=== PATIENT | female | born 1980 | race Caucasian/White ===

== ENCOUNTER 2018-11-23 10:14 | Inpatient (IN) | payer BC ==
--- NOTE | 2018-11-18 09:29 | HP ---
Admitting History and Physical - Primary Care Physician PCP: Ryland Mello - Admission Chief Complaint: Right breast cancer History of Present Illness: 38 year old premenapausal female with family H/O breast cancer who felt a lump in her right breast for 6 mos and went for mammogram and US 10/05/2018 which showed density right breast UOQ with calcifications and spiculation. US showed 3.3 cm mass right breast 10:00 3 cm FN. US core biopsy right breast 2017 showed invasive ductal carcioma ER+/AL+/HER2-. She also underwent left breast 3:00 biopsy that eas benign. MRI showed known right breast cancer UOQ 2.7x2.6 cm with a separate satllite lesion posteriorl to main mass. There was also some slight suspisious 8:00 and left breast was negative. Directed us of 8:00 region at [place] showed area to be biopsied but was not done since she is opting for bilateral mastectomies. Myrisk panel was negative. History Source: Patient Limitations to Obtaining History: No Limitations - Past Medical History Renal/: Yes: UTI (decreased) - Past Surgical History Past Surgical History: Yes: Appendectomy (2018) Additional Past Surgical History: eye lasik 2018 - Smoking History Smoking history: Never smoked Have you smoked in the past 12 months: No - Alcohol/Substance Use Hx Alcohol Use: Yes (social) Home Medications - Allergies Allergies/Adverse Reactions: Allergies Allergy/AdvReac Type Severity Reaction Status Date / Time bee venom protein (honey bee) Allergy Verified 11/18/18 09:38 Sulfa (Sulfonamide Allergy Verified 11/18/18 09:38 Antibiotics) - Home Medications Home Medications (free text): nitrofurantoin Family Disease History - Family Disease History Family Disease History: CA: Grandparent (mat [place] breast ca 80) Other Family History: mat aunt breast ca 50 Physical Examination Constitutional: Yes: No Distress Breast(s): Yes: Other (mildly ptotic B sized cups with visible density towards right upper outer periareolar border and is palpable no palpable left breast masses or adenopathy bilaterally post biopsy changes right breast) Problem List - Problems (1) Breast cancer, right breast Code(s): C50.911 - MALIGNANT NEOPLASM OF UNSP SITE OF RIGHT FEMALE BREAST Qualifiers: Breast location: upper outer quadrant of breast Estrogen receptor status: positive Patient sex: female Qualified Code(s): C50.411 - Malignant neoplasm of upper-outer quadrant of right female breast; Z17.0 - Estrogen receptor positive status [ER+] Assessment/Plan Bilateral total NS mastectomies retroareolar biopsies, right sentenel node biopsy possible axillary node dissection ,lymphoscintogram reconstruction alloderma and implants.
[2018-11-18 12:03] VITALS: BMI 26.3
[2018-11-23] MEDS ORDERED: GENTAMICIN SO4 80 MG/2 ML VIAL ONE (12:50)
[2018-11-23] MEDS ORDERED: ceFAZolin SODIUM 1 GM VIAL ONE (12:50)
[2018-11-23] MEDS ORDERED: MIDAZOLAM HCL 2 MG/2 ML SINGLE DOSE VIAL ONE (13:35)
[2018-11-23] MEDS ORDERED: BUPIVACAINE HCL/PF 2.5 MG/ML - 30 ML VIAL IJ ONE (13:36)
[2018-11-23] MEDS ORDERED: BUPIVACAINE LIPOSOME/PF (EXPAREL) 266 MG/20 ML VIAL ONE (13:36)
[2018-11-23] MEDS ORDERED: LIDOCAINE HCL/PF 2% SDV 5ML VIAL ONE (13:40)
[2018-11-23] MEDS ORDERED: ROCURONIUM BROMIDE 50 MG/5 ML VIAL ONE ×2 (13:40→16:18)
[2018-11-23] MEDS ORDERED: ONDANSETRON 4 MG/2 ML VIAL ONE ×2 (13:40→18:15)
[2018-11-23] MEDS ORDERED: DEXAMETHASONE SOD PHOSPHATE 4 MG/1 ML VIAL ONE (13:40)
[2018-11-23] MEDS ORDERED: DEXMEDETOMIDINE HCL 200 MCG/2 ML IVPB ONE (13:54)
[2018-11-23] MEDS ORDERED: ESMOLOL HCL 100,000 MCG/10 ML VIAL ONE (14:00)
[2018-11-23] MEDS ORDERED: ePHEDrine SULFATE 50 MG/1 ML AMPULE ONE (15:28)
[2018-11-23] MEDS ORDERED: DESFLURANE GAS 240 ML BOTTLE IH ONE (16:15)
[2018-11-23] MEDS ORDERED: ONDANSETRON 4 MG/2 ML VIAL IVPUSH PRN ×2 (17:04→18:18)
[2018-11-23] MEDS ORDERED: ZOLPIDEM TARTRATE 5 MG TABLET PO PRN (17:04)
[2018-11-23] MEDS ORDERED: ACETAMINOPHEN 325 MG TABLET (FP) PO PRN (17:04)
[2018-11-23] MEDS ORDERED: DEXTROSE 5%-0.45% SALINE 1,000 ML IV SCH (17:15)
[2018-11-23] MEDS ORDERED: PROPOFOL 20 ML ONE (17:30)
[2018-11-23] MEDS ORDERED: KETOROLAC TROMETHAMINE 30 MG/1 ML VIAL ONE (17:35)
[2018-11-23] MEDS ORDERED: NEOSTIGMINE METHYLSULFATE 0.5 MG/ML - 10 ML MDV ONE (17:37)
[2018-11-23] MEDS ORDERED: HYDROmorphone HCL CARPU-JECT 1 MG/1 ML DISP.SYRIN IVPUSH PRN (18:18)
[2018-11-23] MEDS ORDERED: ONDANSETRON 4 MG/2 ML VIAL IVPUSH ONE (18:18)
[2018-11-23] MEDS ORDERED: PROMETHAZINE HCL 25 MG/1 ML VIAL IVPUSH PRN (18:18)
[2018-11-23] MEDS: diazePAM 2 MG TABLET PO SCH ×2 (19:49→23:12)
[2018-11-23] MEDS: ACETAMINOPHEN 325 MG TABLET (FP) PO SCH (19:49)
[2018-11-23] MEDS: oxyCODONE HCL 5 MG TABLET PO PRN ×2 (19:50→23:12)
[2018-11-23] MEDS: CEFAZOLIN 1 GM/D5W 1 GM/50 ML BAG IVPB SCH (21:27)
[2018-11-23] MEDS: oxyCODONE HCL 10 MG SUSTAINED ACTING TABLET PO SCH (21:27)
[2018-11-24] MEDS: CEFAZOLIN 1 GM/D5W 1 GM/50 ML BAG IVPB SCH ×4 (02:25→20:21)
[2018-11-24] MEDS: ACETAMINOPHEN 325 MG TABLET (FP) PO SCH ×4 (02:25→20:20)
[2018-11-24] MEDS: oxyCODONE HCL 5 MG TABLET PO PRN ×6 (02:26→18:05)
[2018-11-24] MEDS: diazePAM 2 MG TABLET PO SCH ×3 (05:21→18:05)
[2018-11-24 08:04] LABS: HEMOGLOBIN 10.8 GM/dl (10.7-15.3); MCH 30.7 pg (25.7-33.7); MCHC 33.7 g/dl (32.0-36.0); MEAN CELL VOLUME 91.2 fl (80-96); PLATELET COUNT 241 K/MM3 (134-434); RBC 3.51 M/mm3 (3.60-5.2); RDW 12.1 % (11.6-15.6); WHITE BLOOD COUNT 14.1 K/mm3 (4.0-10.8)
[2018-11-24] MEDS: HEPARIN NA (PORCINE) 5,000 UNITS/ML 1ML VIAL SQ SCH ×2 (08:12→20:21)
--- NOTE | 2018-11-24 08:13 | PN ---
Progress Note (short form) - Note Progress Note: Post op day#1.S/P Bilateral mastectomy with reconstruction under GA with bilateral PECS block uneventful.Patient stable and c/o pain score of 2-3/10.NO ANY ANESTHESIA RELATED PROBLEM.pATIENT DC FROM THE anesthesia care.
--- NOTE | 2018-11-24 09:18 | OP ---
DATE OF OPERATION: 11/23/2018 PREOPERATIVE DIAGNOSES: 1. Bilateral acquired chest wall deformity status post bilateral mastectomy (611.89). 2. Personal history of carcinoma. POSTOPERATIVE DIAGNOSES: 1. Bilateral acquired chest wall deformity status post bilateral mastectomy (611.89). 2. Personal history of carcinoma. PROCEDURE: 1. Right immediate breast reconstruction utilizing immediate insertion of silicone breast implant and AlloDerm reconstruction. 2. Left immediate breast reconstruction utilizing immediate insertion of silicone breast implant and AlloDerm reconstruction. 3. Intravenous injection of indocyanine green dye and intraoperative diagnostic evaluation of non-coronary intraoperative fluorescein vascular angiography x 2. SURGEON: Dr. Stephani Cortes CUSTOMER ADVISOR: Shante Samuels PA-C ANESTHESIA: GENERAL OPERATIVE PROCEDURE IN DETAIL: The patient was taken to the operating room. After induction of general anesthesia in the supine position, both arms were extended and padded. Venodyne boots were placed. The entire chest wall was painted with ChloraPrep solution over its entire extent, and sterile drapes were placed in the usual fashion. The markings, which had been made in the standing position preoperatively, were reoutlined with the patient's knowledge. Time-out procedure was performed. Attention was turned by Dr. Mello to the mastectomies. Bilateral inframammary incisions were made and Dr. Mello performed mastectomies. This will be dictated under separate cover. Upon completion of the mastectomies, the wounds were copiously irrigated and attention was turned to the right breast. A subpectoral dissection was begun on the right breast, superiorly from the second rib, medially to the sternal fibers, and down to the inframammary fold, elevating the pectoralis major muscle from its insertion. At this point, a sheet of contour medium perforated AlloDerm was brought into the field and sutured superiorly along the pectoralis major muscle after rehydration. This was carried along the lateral mammary fold and down the side of the breast reconstruction. At this point, a contour medium perforated AlloDerm implant was chosen. The left breast tissue removed was 223 gm, and the right breast approximately 326 gm. This implant was placed and then sutured with 3-0 Vicryl suture continued along the inframammary fold, completely covering the implant itself. The exact same procedure was carried out symmetrically on the opposite breast, also placing a contour medium perforated AlloDerm implant in the same subpectoral pocket. Good symmetry was seen in the sitting position. After the MASTECTOMY AND implants were in place, the patient was injected with 10 mL of Isocyanide green dye and the Spy imaging system was brought into the field. The skin flowed to the right and left breasts and the nipple areolar complex, and the entire skin flaps were evaluated and seen to be viable with good blood flow. Two Wilder drains were brought out through separate stab wounds laterally. The Smart Infuser pump catheter was inserted medially and into the subpectoral position. Both wounds were closed symmetrically using 3-0 PDS suture on the deep tissue, 3-0 in a deep dermal fashion, and 4-0 in a subcuticular fashion. Both wounds were dressed sterilely with Mastisol and Steri-Strips with a surgical bra and a compression strap. The patient tolerated the procedure well. She was awakened, extubated and transferred to the recovery room in satisfactory condition. The retail sales assistant was present during the entire portion of the operation and closure. CHAPIN CORTES M.D. [id number] MTDD
--- NOTE | 2018-11-24 09:36 | PN ---
Progress Note, Physician Chief Complaint: S/P bilateral mastectomy with right andx and implant reconstruction POD#1 History of Present Illness: Patient was seen today and reports good pain control. She is tolerating po well and voiding regularly. - Current Medication List Current Medications: Active Medications Acetaminophen (Tylenol -) 650 mg PO Q4H PRN PRN Reason: FEVER Acetaminophen (Tylenol -) 650 mg PO Q6H [facility] Stop: 11/26/18 19:29 Last Admin: 11/24/18 08:11 Dose: 650 mg Diazepam (Valium -) 2 mg PO Q6HPO [facility] Last Admin: 11/24/18 05:21 Dose: 2 mg Heparin Sodium (Porcine) (Heparin -) 5,000 unit SQ BID@0800,2000 [facility] Last Admin: 11/24/18 08:12 Dose: 5,000 unit Cefazolin Sodium (Ancef 1 Gm Premixed Ivpb -) 1 gm in 50 mls @ 100 mls/hr IVPB Q6H-IV [facility] Stop: 11/30/18 20:59 Last Admin: 11/24/18 08:12 Dose: 100 mls/hr Dextrose/Sodium Chloride (D5-1/2ns -) 1,000 mls @ 100 mls/hr IV ASDIR [facility] Ondansetron HCl (Zofran Injection) 4 mg IVPUSH Q6H PRN PRN Reason: NAUSEA AND/OR VOMITING Last Admin: 11/23/18 22:50 Dose: 4 mg Oxycodone HCl (Roxicodone -) 5 mg PO Q3H PRN PRN Reason: PAIN LEVEL 1-5 Last Admin: 11/24/18 08:16 Dose: 5 mg Oxycodone HCl (Roxicodone -) 10 mg PO Q3H PRN PRN Reason: PAIN LEVEL 6-10 Last Admin: 11/23/18 19:50 Dose: 10 mg Oxycodone HCl (Oxycontin -) 10 mg PO BID [facility] Stop: 11/26/18 18:19 Last Admin: 11/23/18 21:27 Dose: 10 mg Zolpidem Tartrate (Ambien -) 5 mg PO HS PRN PRN Reason: Insomnia - Objective Vital Signs: Vital Signs Temperature 97.4 F L 11/24/18 06:36 Pulse Rate 59 L 11/24/18 06:36 Respiratory Rate 17 11/24/18 06:36 Blood Pressure 103/45 L 11/24/18 06:36 O2 Sat by Pulse Oximetry (%) 98 11/24/18 08:25 Constitutional: Yes: Well Nourished, Calm Breast(s): Yes: Other (Bilateral breasts with ecchymosis noted. The right nipple/areola complex slightly dusky. The incision with steristrips intact. No erythema or discharge noted. JPs x 4 with serosanginous discharge noted.) Labs: CBC, BMP 11/24/18 07:00 Problem List - Problems (1) Breast cancer, right breast Code(s): C50.911 - MALIGNANT NEOPLASM OF UNSP SITE OF RIGHT FEMALE BREAST Qualifiers: Breast location: upper outer quadrant of breast Estrogen receptor status: positive Patient sex: female Qualified Code(s): C50.411 - Malignant neoplasm of upper-outer quadrant of right female breast; Z17.0 - Estrogen receptor positive status [ER+] Assessment/Plan A: S/P bilateral mastectomy with implant reconstruction and right andx POD#1 P: OOB today with assistance IS 10 xs hourly Continue pain management and axbx as ordered Teach LAITH monitoring Plan for discharge in am
[2018-11-24] MEDS: oxyCODONE HCL 10 MG SUSTAINED ACTING TABLET PO SCH ×2 (09:40→21:39)
--- NOTE | 2018-11-24 12:15 | OP ---
Operative Note - Note: Operative Date: 11/23/18 Pre-Operative Diagnosis: Bilateral acquired chest wall deformity s/p b/l mastectomy Operation: Right immediate breast reconstruction utiliing immediate insertion of silicone breast implant and AlloDerm reconstruction. Left immediate breast reconstruction utiliing immediate insertion of silicone breast implant and AlloDerm reconstruction Findings: as dictated Implants: as dictated Post-Operative Diagnosis: Same as Pre-op Surgeon: Raymond Cortes Rn Oncology Clinical: Hilda Samuels Anesthesiologist/CHUCKING MACHINE SET UP OPERATOR TOOL: Chong Velazquez Anesthesia: General Specimens Removed: as dictated Drains & Tubes with Location: 2 LAITH drains in each breast pocket Fluid Volume Replaced (mls): 1,500 (ml) Operative Report Dictated: Yes
--- NOTE | 2018-11-24 12:16 | SURG ---
Surgery Electrotherapist Note Electrotherapist: Hilda Samuels PA-C (Suzy) Date of Service: 11/24/18 Diagnosis: Bilateral acquired chest wall deformity s/p b/l mastectomy Procedure: Right immediate breast reconstruction utiliing immediate insertion of silicone breast implant and AlloDerm reconstruction. Left immediate breast reconstruction utiliing immediate insertion of silicone breast implant and AlloDerm reconstruction I was present for the entirety of the operative procedure. For further detail, please refer to operative report. Visit type - Case Type Case Type: Scheduled - Emergency Emergency Visit: No - New patient This patient is new to me today: Yes Date on this admission: 11/24/18 - Critical Care Critical Care patient: No
[2018-11-25] MEDS: diazePAM 2 MG TABLET PO SCH ×2 (00:13→05:36)
[2018-11-25] MEDS: oxyCODONE HCL 5 MG TABLET PO PRN ×3 (00:14→10:27)
[2018-11-25] MEDS: ACETAMINOPHEN 325 MG TABLET (FP) PO SCH ×2 (01:00→06:50)
[2018-11-25] MEDS: CEFAZOLIN 1 GM/D5W 1 GM/50 ML BAG IVPB SCH ×2 (02:10→10:28)
[2018-11-25 06:22] VITALS: PULSE 60
[2018-11-25 06:23] VITALS: BP 111/59; TEMP 98.6
--- NOTE | 2018-11-25 09:14 | PN ---
Progress Note, Physician Chief Complaint: S/P bilateral mastectomy with right andx and implant reconstruction POD#2 History of Present Illness: Patient was seen at the bedside today and reports good pain control without any other complaints other then constipation. - Current Medication List Current Medications: Active Medications Acetaminophen (Tylenol -) 650 mg PO Q4H PRN PRN Reason: FEVER Last Admin: 11/25/18 05:36 Dose: 650 mg Acetaminophen (Tylenol -) 650 mg PO Q6H [facility] Stop: 11/26/18 19:29 Last Admin: 11/25/18 06:50 Dose: Not Given Diazepam (Valium -) 2 mg PO Q6HPO [facility] Last Admin: 11/25/18 05:36 Dose: 2 mg Heparin Sodium (Porcine) (Heparin -) 5,000 unit SQ BID@0800,2000 [facility] Last Admin: 11/24/18 20:21 Dose: 5,000 unit Cefazolin Sodium (Ancef 1 Gm Premixed Ivpb -) 1 gm in 50 mls @ 100 mls/hr IVPB Q6H-IV [facility] Stop: 11/30/18 20:59 Last Admin: 11/25/18 02:10 Dose: 100 mls/hr Dextrose/Sodium Chloride (D5-1/2ns -) 1,000 mls @ 100 mls/hr IV ASDIR [facility] Last Admin: 11/24/18 18:05 Dose: Not Given Ondansetron HCl (Zofran Injection) 4 mg IVPUSH Q6H PRN PRN Reason: NAUSEA AND/OR VOMITING Last Admin: 11/23/18 22:50 Dose: 4 mg Oxycodone HCl (Roxicodone -) 5 mg PO Q3H PRN PRN Reason: PAIN LEVEL 1-5 Last Admin: 11/25/18 05:37 Dose: 5 mg Oxycodone HCl (Roxicodone -) 10 mg PO Q3H PRN PRN Reason: PAIN LEVEL 6-10 Last Admin: 11/23/18 19:50 Dose: 10 mg Oxycodone HCl (Oxycontin -) 10 mg PO BID [facility] Stop: 11/26/18 18:19 Last Admin: 11/24/18 21:39 Dose: 10 mg Zolpidem Tartrate (Ambien -) 5 mg PO HS PRN PRN Reason: Insomnia - Objective Vital Signs: Vital Signs Temperature 98.6 F 11/25/18 06:00 Pulse Rate 60 11/25/18 06:00 Respiratory Rate 18 11/25/18 06:00 Blood Pressure 111/59 L 11/25/18 06:00 O2 Sat by Pulse Oximetry (%) 98 11/25/18 06:00 Constitutional: Yes: Well Nourished, Calm Breast(s): Yes: Other (Bilateral breast ecchymosis has decreased as well as swelling. The right nipple noted to have a small area of epidermalysis. The flaps are warm and JPs with serosanginous discharge.) Labs: CBC, BMP 11/24/18 07:00 Problem List - Problems (1) Breast cancer, right breast Code(s): C50.911 - MALIGNANT NEOPLASM OF UNSP SITE OF RIGHT FEMALE BREAST Qualifiers: Breast location: upper outer quadrant of breast Estrogen receptor status: positive Patient sex: female Qualified Code(s): C50.411 - Malignant neoplasm of upper-outer quadrant of right female breast; Z17.0 - Estrogen receptor positive status [ER+] Assessment/Plan Plan: D/C home today with pain meds, axbx, valium and Zofran Followup with Dr. Mello and Dr. Cortes Record LAITH output at home
[2018-11-25] MEDS: HEPARIN NA (PORCINE) 5,000 UNITS/ML 1ML VIAL SQ SCH (10:28)
[2018-11-25] MEDS: oxyCODONE HCL 10 MG SUSTAINED ACTING TABLET PO SCH (10:28)
[2018-11-25] MEDS ORDERED: ONDANSETRON *ODT* 4 MG TABLET SL ONE (10:30)
--- NOTE | 2018-11-26 10:01 | OP ---
DATE OF OPERATION: 11/23/2018 PREOPERATIVE DIAGNOSIS: Right breast cancer, upper outer quadrant. POSTOPERATIVE DIAGNOSIS: Right breast cancer, upper outer quadrant. PROCEDURE: Bilateral nipple-sparing mastectomies through an inframammary approach with right axillary sentinel lymph node biopsy, followed by axillary lymph node dissection with bilateral direct-implant reconstruction. ANESTHESIA: General endotracheal anesthesia. PRIMARY SURGEON: Chapin Mello MD PIECE WORK CHECKER: LEEROY Jerez PRIMARY SURGEON FOR THE BILATERAL DIRECT-IMPLANT RECONSTRUCTION: Chapin Cortes MD COMPLICATIONS: None. Briefly, the patient is a 38-year-old, G2, P2, premenopausal white female of [place] descent. The patient has a family history with her maternal aunt who had breast cancer at age 50. Maternal great-aunt had breast cancer in her 80s. The patient was found to have a mass in the upper outer aspect of the right breast, and mammography and ultrasound showed a spiculated lesion measuring about 3.3 cm on ultrasound at the 10 o'clock region, 3 cm from the nipple. Ultrasound core biopsy showed a moderately differentiated invasive duct cancer which was ER/MS positive, HER2/fara negative. A separate left breast biopsy was benign. MRI showed the known cancer in the right breast 10 o'clock region with a separate density posterior to it and another density seen in the right breast 8 o'clock region. The patient decided to go forward with mastectomies and was seen in consultation. The patient wanted to undergo a contralateral prophylactic mastectomy. I spoke to the patient about the lack of any survival benefit shown for doing prophylactic contralateral surgery, but she still wanted to go forward with bilateral mastectomies. I reviewed all the films, and it was felt she could be a candidate for a nipple-sparing technique. She was seen by Dr. Cortes and wanted to go forward with direct-implant reconstruction. She understood the need for a sentinel lymph node biopsy and possible axillary dissection and that chemotherapy and radiation would ultimately depend on the final pathology. The patient was brought in for the procedure on November 23, 2018. She underwent the lymphoscintigraphy through a periareolar injection of technetium 99 around the right breast nipple-areolar complex and was brought to the [place] holding area. In the holding area, site verification was made, and informed consent was obtained. She was marked preoperatively by the plastic surgeon. She was brought into the operating room, laid on the OR table in a supine position. Venodynes were placed on the lower extremities prior to induction. She received 2 g of Ancef prior to incision. Both breasts were sterilely prepped and draped in usual fashion. She underwent general endotracheal anesthesia. Once she was properly anesthetized, the right axillary sentinel lymph node biopsy was first performed. No blue dye was injected since we were doing a nipple-sparing technique. Incision was made just below the hair-bearing area of the right axilla and dissection was undertaken and 3 separate hot nodes were found in the level I region of the right axilla. The first sentinel lymph node had a 10-second gamma count of 2006, the second sentinel lymph node had a 10-second gamma count of 1098, and the third sentinel lymph node had a 10-second gamma count of 1967. Background count after removal of these 3 nodes was 105, and no other hot nodes were found. Hemostasis was achieved. Frozen section of these nodes was performed, and the first node did come back positive for metastatic cancer to the lymph node. At this point, the right breast nipple-sparing mastectomy was performed. A 9-cm incision was made around the inframammary fold of the right breast, and the skin was everted and the breast was retracted inferiorly using Toan clamps. The skin flap was raised using the PEAK radiofrequency device superiorly to the level of the clavicle, medially to the level of the sternum, laterally to the level of the latissimus, and inferiorly below the level of the inframammary fold. The breast was taken down off the pectoralis major muscle from inferomedial to superolateral, completely removed intact. It was oriented with a long lateral/short superior suture and weighed to allow for appropriate cosmetic result. Specimen radiographs showed removal of the clip in question. At this point, separate margins were taken on the upper outer anterior margin as well as lateral anterior margin with a suture marking the biopsy cavity side. These were all sent separately to Pathology as anterior margins. Retroareolar biopsies taken underneath the right nipple-areolar complex sent for frozen section came back negative, so the nipple was spared. At this point, the right axillary lymph node dissection was undertaken by extending the sentinel lymph node incision slightly laterally, and a full level I/level II axillary lymph node dissection was undertaken. The axillary vein was used as the superior border of the dissection and latissimus as the lateral border with the pectoralis minor as the medial border. The lymph nodes were completely cleared out of the level I and level II regions of the right axilla. The long thoracic and thoracodorsal nerves were identified and spared throughout their entire courses. The axillary contents were sent to Pathology as right axillary lymph node dissection in formalin. Hemostasis was achieved, and the wounds were copiously irrigated with warm sterile saline. At this point, instruments and gloves were changed, and the left breast mastectomy was performed, again through an inframammary approach by a 9-cm incision. The skin edges were everted, and the breast was retracted inferiorly using [place] clamps. The skin flap was raised using the PEAK radiofrequency device superiorly to the level of the clavicle, medially to the level of the sternum, laterally to the level of the latissimus, and inferiorly below the level of the inframammary fold. The breast was taken down off the pectoralis major muscle from inferomedial to superolateral and completely removed intact. It was oriented with a long lateral/short superior suture and weighed to allow for appropriate cosmetic result. The left breast was then sent to Pathology in formalin. A retroareolar biopsy was taken underneath the left nipple-areolar complex and sent for frozen section, came back negative, so the left nipple was spared. The skin flaps were trimmed for good cosmetic result, and hemostasis was achieved. The wound was copiously irrigated with warm sterile saline. At this point, Dr. Cortes became the primary surgeon and performed bilateral direct-implant reconstruction using AlloDerm, suturing it in the inferolateral aspects of both pectoralis major muscles. Two Wilder drains will be placed around each implant, brought through separate stab incisions on the lateral skin flaps and secured in place using a 3-0 nylon suture. All wounds will be closed, and this will be dictated separately by Plastic Surgery. The patient was hemodynamically stable throughout the case, and estimated blood loss was about 125 mL. We did use the SPY skin perfusion device during the case, and she had some delayed perfusion around the right nipple-areolar complex, but this did fill in on later imaging. The patient was extubated at the end of the case and brought to the postanesthesia care unit in stable condition. She will be recovered and admitted postoperatively for pain and wound management. She did have a pectoral nerve block preoperatively for postop pain control. CHAPIN MELLO M.D. /[id number]
--- NOTE | 2018-11-26 16:21 | PATH ---
Surgical Pathology Report Patient Name: GALINDO LOPEZ Med. Rec. #: [id number] /Age/Gender: 1980 (Age: 38) / F Account: [id number] Location: [facility] Taken: 11/23/2018 Received: 11/23/2018 Reported: 11/26/2018 Physicians: Ryland Mello M.D. Specimen(s) Received A: RIGHT SENTINEL NODE #1 B: RIGHT SENTINEL NODE # 2 C: RIGHT SENTINEL NODE # 3 D: RIGHT RETROAREOLAR BIOPSY E: LEFT RETROAREOLAR BIOPSY F: LEFT BREAST MASTECTOMY G: RIGHT BREAST MASTECTOMY H: RIGHT BREAST ANTERIOR LATERAL MARGIN I: RIGHT BREAST ANTERIOR UPPER OUTER QUADRANT MARGIN J: RIGHT AXILLARY NODE DISSECTION Clinical History Upper outer quadrant right breast cancer Right, invasive carcinoma; left, prophylactic Intraoperative Consult Diagnosis A. Right sentinel node #1, frozen section: One lymph node, positive for metastatic carcinoma. Tumor size = 5 mm. B. Right sentinel node #2, frozen section: One lymph node, negative for carcinoma. C. Right sentinel node #3, frozen section: One lymph node, negative for carcinoma. D. Right retroareolar biopsy, frozen section: Negative for malignancy. E. Left retroareolar biopsy, frozen section: Negative for malignancy. Bren Meredith M.D., 11/23/2018 Final Diagnosis A. lymph node, right sentinel #1, excision (FS): Metastatic carcinoma, involving one of one lymph node (1/1). The focus of metastatic carcinoma measures 7 mm in greatest dimension (mAcrometastasis). Extranodal extension is present. B. lymph node, right sentinel #2, excision (FS): One lymph node, negative for metastatic carcinoma (0/1). C. lymph node, right, sentinel #3, excision (FS): One lymph node, negative for metastatic carcinoma (0/1). D. retroareola, right breast, biopsy (FS): Benign breast tissue; negative for malignancy. E. retroareola, left breast, biopsy (FS): Benign breast tissue; negative for malignancy. F. breast, left, nipple-sparing mastectomy: Benign breast tissue. G. breast, right, nipple- SPARING mastectomy: Invasive ductal carcinoma, moderately differentiated (tubule SCORE: 3/3, nuclear grade: 2/3, mitotic score: 2/3, total score: 7/9, [place] grade 2). (SEE NOTE) Invasive carcinoma measures 2.6 cm in greatest dimension, microscopically. Ductal carcinoma in situ (DCIS), Solid and cribriform type, intermediate nuclear grade, with moderate necrosis and associated calcifications, present admixed with invasive carcinoma as a minor component. (SEE NOTE) Invasive carcinoma FOCALLY EXTENDS TO and IS close to (< 1 mm) the anterior margin at a few foci. DCIS is close to (< 1mm) the anterior margin at a few foci. (see specimens H and I for final anterior margin). Lymphovascular invasion is present. Prior biopsy site changes are present. Pathologic stage (pTNM): pT2 pN1a. see also invasive carcinoma CASE summary below. Note: Immunostains performed at [facility] show the following results: the carcinoma shows strong membranous positivity for E-Cadherin (block G2), which supports ductal phenotype. Myoepithelial immunohistochemical markers (SMM-HC and p63, block G3) demonstrate the lack of myoepithelial cells in the invasive carcinoma and aid in ruling out presence of extensive in situ (EIS) component .These findings support the diagnosis. H. breast, right, anterior lateral margin, excision: Benign predominantly fatty breast tissue. One small benign intramammary lymph node (0/1). I. breast, right, anterior upper outer quadrant margin, excision: Benign predominantly fatty breast tissue. J. axillary lymph nodes, right, dissection: Twelve lymph nodes, negative for metastatic carcinoma (0/12). Comments Breast Invasive Carcinoma: Surgical Pathology Case Summary (Based on AJCC TNM 8 th edition) Procedure _X_ Total mastectomy (including nipple-sparing and skin-sparing mastectomy) Specimen Laterality _X_ Right Tumor Size _X_ Greatest dimension of largest invasive focus (millimeters): 26 mm Histologic Type _X_ Invasive carcinoma of no special type (ductal, not otherwise specified) Histologic Grade (Ollie Histologic Score) Glandular (Acinar)/Tubular Differentiation _X_ Score 3 (<10% of tumor area forming glandular/tubular structures) Nuclear Pleomorphism _X_ Score 2 Mitotic Rate _X_ Score 2 Overall Grade _X_ Grade 2 (scores of 6 or 7) Tumor Focality _X_ Single focus of invasive carcinoma Ductal Carcinoma In Situ (DCIS) _X_ DCIS is present in specimen _X_ Negative for extensive intraductal component (EIC) Margins Invasive Carcinoma Margins _X_ Uninvolved by invasive carcinoma Distance from closest margin (millimeters): Invasive carcinoma extends to the anterior margin in mastectomy specimen G. Separate final anterior margins H&I are negative for carcinoma. DCIS Margins _X_ Uninvolved by DCIS Distance from closest margin (millimeters): DCIS is < 1mm from the anterior margin in mastectomy specimen G. Separate final anterior margins H&I are negative for DCIS. Regional Lymph Nodes Number of Lymph Nodes with Macrometastases (>2 mm): 1 Number of Lymph Nodes with Micrometastases (>0.2 mm to 2 mm and/or >200 cells): 0 Number of Lymph Nodes with Isolated Tumor Cells (=0.2 mm and =200 cells): 0 Size of Largest Metastatic Deposit (millimeters): 7 mm Extranodal Extension: _X_ Present Number of Lymph Nodes Examined: 16 Number of Coulters Nodes Examined : 3 Treatment Effect _X_ No known presurgical therapy Lymphovascular Invasion _X_ Present Pathologic Stage Classification (pTNM, AJCC 8th Edition) Primary Tumor (Invasive Carcinoma) (pT) _X_ pT2: Tumor >20 mm but =50 mm in greatest dimension Regional Lymph Nodes (pN) Category (pN) _X_ pN1a: Metastases in 1 to 3 axillary lymph nodes, at least 1 metastasis larger than 2.0 mm Biomarker Studies Results of ER and MN studies performed on this specimen (block G2) at [facility] are as follows: ER (clone [id number] mouse monoclonal antibody by [employer]): > 95 % nuclear staining with strong intensity (Positive). MN (clone16 mouse monoclonal antibody by [employer]): > 95 % nuclear staining with strong intensity (Positive). Results of Her2 and Ki67 studies will be reported separately in an addendum. Positive and negative controls (internal if applicable) show appropriate results. Formalin fixation and cold ischemic times are within current ASCO/CAP recommendations for ER, MN and Her2 testing. Electronically Signed Kimberly Palmer M.D. Addendum Reported: 11/29/2018 Addendum Diagnosis Biomarker Studies Results of Her2 (IHC) & Ki-67 studies performed on this specimen (block G2) at [place], [place] ([id number]) interpreted at [facility] are as follows: Her2 IHC (EP3 from [employer], formerly known as [id number], using [employer] Polymer Refine detection kit): Negative (0) Ki-67: ~25% (intermediate proliferative index) Alo Meredith M.D. Gross Description A. Received fresh labeled "right sentinel node #1," is a 1.0 cm in greatest dimension katz lymph node with attached fat. The specimen is bisected and entirely submitted for frozen section. The frozen section residue is entirely submitted in one cassette. B. Received fresh labeled "right sentinel node #2," is a 0.6 cm in greatest dimension katz lymph node. The specimen is submitted in toto for frozen section. The frozen section residue is entirely submitted in one cassette. C. Received fresh labeled "right breast cancer upper outer quadrant," is a 0.7 cm in greatest dimension katz lymph node. The specimen is submitted in toto for frozen section. The frozen section residue is entirely submitted in one cassette. D. Received fresh labeled "right retroareolar biopsy," is a 1.5 x 0.5 x 0.4 cm portion of katz-red fibroadipose tissue. The specimen is submitted in toto for frozen section. The frozen section residue is entirely submitted in one cassette. E. Received fresh labeled "left retroareolar biopsy," is a 1.0 x 0.8 x 0.3 cm portion of katz-red fibroadipose tissue. The specimen is submitted in toto for frozen section. The frozen section residue is entirely submitted in one cassette. F. Received in formalin, labeled "left breast," is a 220 gram, 15.0 x 14.4 x 2.5 cm. left mastectomy specimen with a short suture marking the superior aspect and a long suture marking the lateral aspect of the specimen, per the surgeon. There is no skin or nipple present. The deep margin is inked black and the anterior soft tissue margin is inked blue. The specimen is serially sectioned from medial to lateral. Sectioning reveals abundant dense, white fibrous tissue. Speech Communication Instructor sections are submitted in 12 cassettes as follows: 1-3-upper outer quadrant; 4-6-lower outer quadrant; 7-8-upper inner quadrant; 9-10-lower inner quadrant; 11-anterior soft tissue margin; 12-deep margin. G. Received in formalin, labeled "right breast," is a 341 gram, 15.0 x 14.0 x 3.2 cm. right mastectomy specimen with a short suture marking the superior aspect and a long suture marking the lateral aspect of the specimen, per the surgeon. There is no skin or nipple present. The deep margin is inked black and the anterior soft tissue margin is inked blue. The specimen is serially sectioned from lateral to medial. Sectioning reveals a 2.3 x 2.0 x 1.1 cm katz, firm mass in the upper outer quadrant (UOQ). The mass is 0.5 cm from the anterior soft tissue margin and 2 cm from the deep margin. The remaining breast parenchyma displays abundant dense, white, focally firm fibrous tissue. Speech Communication Instructor sections are submitted in 12 cassettes as follows: 1-full-face section of mass with anterior soft tissue margin; 2-additional full-face section of mass with anterior soft tissue margin; [id number] sections of mass with anterior soft tissue margin; 5-uninvolved UOQ tissue; 6-7-lower outer quadrant; 8-9-upper inner quadrant; 10-11-lower inner quadrant; 12-deep margin. Time to formalin fixation: 22 minutes Total formalin fixation time: Approximately 25 hours. H. Received in formalin labeled "right breast anterior lateral margin," is a 6.0 x 3.2 x 1.4 cm portion of fibroadipose tissue with a suture marking the biopsy cavity side, per the surgeon. The new margin is inked blue and the specimen is serially sectioned. The specimen is entirely and sequentially submitted in 10 cassettes. I. Received in formalin labeled "right breast anterior upper outer quadrant margin," is a 3.5 x 1.8 x 0.5 cm portion of fibroadipose tissue with a suture marking the biopsy cavity side, per the surgeon. The new margin is inked blue and the specimen is serially sectioned. The specimen is entirely and sequentially submitted in 4 cassettes. J. Received in formalin labeled "right axillary node dissection," is a 9.5 x 4.5 x 1.4 cm aggregate of yellow, lobulated adipose tissue. Sectioning reveals abundant katz lymph nodes ranging from 0.3-1.2 cm in greatest dimension. The lymph nodes are entirely submitted in 8 cassettes as follows: 1-4-two whole lymph nodes each; 5-8-one bisected lymph node each. 11/24/2018 [facility]
== END 2018-11-25 10:57 | disposition home or self-care (01) | DRG 580 ==
LOC: FM/S 12:12
PROVIDERS: ADMIT Surgery Surgical Oncology; ATTEND Surgery Surgical Oncology
PROC: 0HTV0ZZ Resection of Bilateral Breast, Open Approach (ICD-10-PCS; principal; 2018-11-23 14:27)
PROC: 07B50ZX Excision of Right Axillary Lymphatic, Open Approach, Diagnostic (ICD-10-PCS; 2018-11-23 14:27)
PROC: 0HUV0JZ Supplement Bilateral Breast with Synthetic Substitute, Open Approach (ICD-10-PCS; 2018-11-23 14:27)
DX: C50.411 Malignant neoplasm of upper-outer quadrant of right female breast (principal); C77.3 Secondary and unspecified malignant neoplasm of axilla and upper limb lymph nodes; Z17.0 Estrogen receptor positive status [ER+]; M95.4 Acquired deformity of chest and rib
CPT/HCPCS: 36415; 78195-TC; 84703; 85027; 88307-TC; 88331-TC; 88341-TC; 88342-TC; 94760; A9541; J1644; Q0162